=== PATIENT | female | born 1935 | race Hispanic/Latino ===

== ENCOUNTER → 2019-12-18 | Outpatient (CLI) | payer MEDICARE | END | disposition home or self-care (01) | LOC: SHCH 13:11 | PROVIDERS: ATTEND Internal Medicine Cardiovascular Disease | DX: M19.071 Primary osteoarthritis, right ankle and foot (principal); M77.31 Calcaneal spur, right foot; M85.871 Other specified disorders of bone density and structure, right ankle and foot; M19.042 Primary osteoarthritis, left hand; M19.041 Primary osteoarthritis, right hand; I08.3 Combined rheumatic disorders of mitral, aortic and tricuspid valves | CPT/HCPCS: 73130; 73630; 93306; 93356 ==

== ENCOUNTER 2020-03-12 08:48 | Observation (INO) | payer MEDICARE ==
[~2020-03-12] VITALS: Ht 160 cm; Wt 70.8 kg
[2020-03-12] VITALS (12 sets, daily range): BP systolic 84–195; BP diastolic 51–119; PULSE 65–77; RESP 17–20; TEMP 97.2–98
[2020-03-12] MEDS ORDERED: SODIUM CHLORIDE 0.9% 1000ML 1,000 ML IV ONE (10:02)
--- NOTE | 2020-03-12 14:10 | NUR ---
REPORT RECEIVED REPORT FROM ANNA PHILIP RN FOR CONTINUATION OF CARE
--- NOTE | 2020-03-12 14:20 | NUR ---
REPORT REPORTED B/P AND PT IN NO DISTRESS TO MD. NO NEW ORDERS AT THIS TIME THEY WILL ADM SOMETHING FOR B/P AT [employer] HELPER IF NEEDED
[2020-03-12] MEDS ORDERED: BUPIVACAINE/PF 0.25% 30ML VIAL IJ ONE (14:33)
[2020-03-12] MEDS ORDERED: IODIXANOL 320 MG/ML 100 ML VIAL ONE (14:33)
[2020-03-12] MEDS ORDERED: CEFAZOLIN SODIUM 1 GM VIAL ONE (14:33)
[2020-03-12] MEDS ORDERED: MEPERIDINE-PF 25 MG/ML SYG ONE ×3 (14:33→15:46)
[2020-03-12] MEDS ORDERED: LIDOCAINE HCL 1% MDV 50ML VIAL ONE (14:34)
[2020-03-12] MEDS ORDERED: MIDAZOLAM HCL 1 MG/ML 2ML VIAL ONE ×3 (14:34→15:47)
--- NOTE | 2020-03-12 14:55 | NUR ---
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
[2020-03-12] MEDS ORDERED: VANCOMYCIN 1GM+NS 250ML 500 ML IV ONE (15:11)
[2020-03-12] MEDS ORDERED: OCTYL 2-CYANOACRYLATE 1 EACH TP ONE (16:30)
[2020-03-12] MEDS ORDERED: NON-FORMULARY MEDICATION 1 EACH (Alendronate Sodium 70 MG) PO SCH (17:00)
[2020-03-12] MEDS ORDERED: ACETAMINOPHEN-CODEINE 300/30MG TAB PO PRN (17:00)
[2020-03-12] MEDS ORDERED: VITAMIN D 5000 UNIT PO SCH (17:00)
--- NOTE | 2020-03-12 17:20 | NUR ---
notification daughter notified pt procedure was done will be going to room 403.
[2020-03-12] MEDS ORDERED: HYDRALAZINE HCL 20 MG/ML VIAL IV PRN (19:45)
[2020-03-12] MEDS ORDERED: LACTULOSE 20 GM/30 ML UDCUP PO PRN (19:45)
[2020-03-12] MEDS ORDERED: ONDANSETRON HCL 4 MG/2 ML VIAL IV PRN (19:45)
[2020-03-12] MEDS ORDERED: DIPHENHYDRAMINE HCL 25 MG CAPSULE PO PRN (19:45)
[2020-03-12] MEDS ORDERED: ACETAMINOPHEN 325 MG TAB PO PRN ×2 (19:45)
[2020-03-12] MEDS ORDERED: CLONIDINE HCL 0.1 MG TABLET PO PRN (19:45)
[2020-03-12] MEDS ORDERED: MAG HYDROX/AL HYDROX/SIMETH ES 30 ML SUSP UDCUP PO PRN (19:45)
[2020-03-12] MEDS ORDERED: HYDROCODONE/ACETAMINOPHEN 5/325 MG TAB PO PRN (19:45)
[2020-03-12] MEDS ORDERED: PRUNELAX PO SCH (21:00)
[2020-03-12] MEDS ORDERED: GABAPENTIN 100 MG CAPSULE PO SCH (21:00)
[2020-03-12] MEDS ORDERED: NON-FORMULARY MEDICATION 1 EACH (Metoprolol Tartrate 100 MG) PO SCH (21:00)
[2020-03-12] MEDS ORDERED: MAGNESIUM CITR PO SCH (21:00)
[2020-03-12] MEDS ORDERED: MAGNESIUM OXIDE 400 MG TABLET PO SCH (21:00)
[2020-03-12] MEDS ORDERED: SERTRALINE HCL 50 MG TABLET PO SCH (21:00)
[2020-03-12] MEDS ORDERED: ATORVASTATIN CALCIUM 10 MG TABLET PO SCH (21:00)
[2020-03-12] MEDS: METOPROLOL TARTRATE 50 MG TAB PO SCH (22:00)
[2020-03-13 00:51] VITALS: BP 156/80; PULSE 70; RESP 18; TEMP 98.7
[2020-03-13 03:45] VITALS: BP 136/79; PULSE 70; RESP 21; TEMP 97.9
[2020-03-13] MEDS ORDERED: VANCOMYCIN 1GM+NS 250ML 250 ML IV ONE (06:00)
[2020-03-13] MEDS ORDERED: LEVOTHYROXINE 25 MCG TABLET PO SCH (06:30)
[2020-03-13 08:36] VITALS: BP 139/87; PULSE 70; RESP 18; TEMP 98.1
[2020-03-13] MEDS: METOPROLOL TARTRATE 50 MG TAB PO SCH (08:45)
[2020-03-13] MEDS ORDERED: NON-FORMULARY MEDICATION 1 EACH (Multivitamin 1 EACH) PO SCH (09:00)
[2020-03-13] MEDS ORDERED: ASCORBIC ACID 500 MG TAB PO SCH (09:00)
[2020-03-13] MEDS ORDERED: ZINC 50MG PO SCH (09:00)
[2020-03-13] MEDS ORDERED: MULTIVITAMIN TABLET PO SCH (09:00)
[2020-03-13] MEDS ORDERED: ZINC 50 MG PO SCH (09:00)
[2020-03-13] MEDS ORDERED: FUROSEMIDE 20 MG TABLET PO SCH (09:00)
[2020-03-13] MEDS ORDERED: NON-FORMULARY MEDICATION 1 EACH (Calcium Carbonate (Calcium) 600 MG) PO SCH (09:00)
[2020-03-13] MEDS ORDERED: NON-FORMULARY MEDICATION 1 EACH (Ascorbic Acid (Vitamin C) 1,000 MG) PO SCH (09:00)
[2020-03-13] MEDS ORDERED: PRUNELAX PO SCH (09:00)
[2020-03-13] MEDS ORDERED: CALCIUM CARBONATE 500 MG TABLET PO SCH (09:00)
[2020-03-13] MEDS ORDERED: VITAMIN D 5000 UNITS PO SCH (09:00)
[2020-03-13] MEDS ORDERED: HYDROXYCHLOROQUINE SULFATE 200 MG TAB PO SCH (09:00)
[2020-03-13] MEDS ORDERED: Brimonidine Tartrate/Timolol (Combigan Eye Drops) 1 DROP OS SCH ×2 (09:00)
[2020-03-13] MEDS ORDERED: DIGOXIN 125 MCG TABLET PO SCH (09:00)
[2020-03-13 12:13] VITALS: BP 119/68; PULSE 71; RESP 18; TEMP 98.4
--- NOTE | 2020-03-13 13:20 | NUR ---
DISCHARGE VERBAL & WRITTEN DISCHARGE INSTRUCTIONS REVIEWED & GIVEN TO PT & DAUGHTER IN [place]. QUESTIONS ENCOURAGED & CLARIFIED. PROPER CARE & ACTIVITY AFTER BiV UPGRADE REVIEWED. NEW PRESCRIBED MEDICATIONS REVIEWED. PRESCRIPTION GIVEN TO PT'S DAUGHTER. PT TO RESUME TAKING ELIQUIS ON 03/14/2020 REINFORCED. TELE SANKET REMOVED EARLIER. IV DC'D @ THIS TIME. PT & DAUGHTER TO GATHER PERSONAL BELONGINGS. WILL NOTIFY STAFF WHEN READY TO BE TAKEN TO PRIVATE VEHICLE.
--- NOTE | 2020-03-13 13:55 | NUR ---
DISCHARGE PT TAKEN TO PRIVATE VEHICLE VIA WC BY MYSELF, Shekhar EID RN. DAUGHTER AWAITING FOR PT IN PRIVATE VEHICLE. NO DISTRESS NOTED.
--- NOTE | 2020-03-13 14:27 | NUR ---
1150 PATIENT SIGNED IM LETTER TO [id number] AND PLACED IN CHART UNDER CONSENT TAB.
[2020-03-19] MEDS ORDERED: ALENDRONATE 70MG PO SCH (07:00)
== END 2020-03-13 13:35 | disposition home or self-care (01) ==
LOC: DAH 08:48 → 4AH 08:49
PROVIDERS: ADMIT Internal Medicine Cardiovascular Disease; ATTEND Internal Medicine Cardiovascular Disease
DX: I48.91 Unspecified atrial fibrillation (principal); I42.8 Other cardiomyopathies; M06.9 Rheumatoid arthritis, unspecified; I13.0 Hypertensive heart and chronic kidney disease with heart failure and stage 1 through stage 4 chronic kidney disease, or unspecified chronic kidney disease; I50.32 Chronic diastolic (congestive) heart failure; N18.2 Chronic kidney disease, stage 2 (mild); I49.5 Sick sinus syndrome; I27.20 Pulmonary hypertension, unspecified; I25.10 Atherosclerotic heart disease of native coronary artery without angina pectoris; I70.0 Atherosclerosis of aorta; G40.209 Localization-related (focal) (partial) symptomatic epilepsy and epileptic syndromes with complex partial seizures, not intractable, without status epilepticus; F32.9 Major depressive disorder, single episode, unspecified; D68.69 Other thrombophilia; E03.9 Hypothyroidism, unspecified; G83.84 Todd's paralysis (postepileptic); Z79.01 Long term (current) use of anticoagulants; Z95.0 Presence of cardiac pacemaker; Z96.651 Presence of right artificial knee joint
CPT/HCPCS: 33225; 33229; 36415 ×2; 71045 ×2; 80048; 80162; 85025; 85610; 85730; 93005; 96365; 96366; A4215; A4216; A4221; A4222; A4223 ×3; A4606; A4663; C1769 ×2; C1894; C1900; C2621; G0378 ×17; J2175 ×2; J2250 ×2; J3370 ×2; J3490 ×2; J7030; Q9967

== ENCOUNTER → 2020-10-22 | Outpatient (CLI) | payer MEDICARE ==
[~2020-10-22] MED LIST: ALEN70TA80 PO; APIX5TAB PO; ASCO100031 PO; ATOR10TA69 PO; BRIM5DRO OS; CALC600T15 PO; DIGO125T71 PO; FURO20TA4 PO; GABA-529 PO; HYDR200T4 PO; LEVO25TA54 PO; MAGNESIUM CITR PO; METO100T14 PO; MULT-1367 PO; PRUNELAX PO; SERT50TA12 PO; TOFA11TA PO; TYLENOL ARTHRITIS PO; VITAMIN D PO; ZINC50TA71 PO
== END | disposition home or self-care (01) ==
LOC: SHCH 10:59
PROVIDERS: ATTEND Internal Medicine Cardiovascular Disease
DX: I82.890 Acute embolism and thrombosis of other specified veins (principal)
CPT/HCPCS: 93306; 93356; 93970

== ENCOUNTER → 2020-11-20 | Outpatient (CLI) | payer OTHER ==
[~2020-11-20] MED LIST changes: +SERT-439 PO; -SERT50TA12 PO
== END | disposition home or self-care (01) ==
LOC: OIH 14:01
PROVIDERS: ATTEND Internal Medicine Cardiovascular Disease
DX: Z13.6 Encounter for screening for cardiovascular disorders (principal)
CPT/HCPCS: 75571

== ENCOUNTER → 2022-12-14 | Outpatient (CLI) | payer MEDICARE ==
[~2022-12-14] MED LIST changes: +CALC-1125 PO; -CALC600T15 PO
== END | disposition home or self-care (01) ==
LOC: SHCH 10:14
PROVIDERS: ATTEND Internal Medicine Cardiovascular Disease
DX: I87.2 Venous insufficiency (chronic) (peripheral) (principal); I48.0 Paroxysmal atrial fibrillation
CPT/HCPCS: 93925; 93970

== ENCOUNTER → 2023-03-04 | Outpatient (CLI) | payer MEDICARE ==
[~2023-03-04] MED LIST changes: -HYDR200T4 PO; +HYDR200T75 PO
== END | disposition home or self-care (01) ==
LOC: RAH 11:17
PROVIDERS: ATTEND Internal Medicine
DX: M79.604 Pain in right leg (principal); R60.9 Edema, unspecified; L03.115 Cellulitis of right lower limb
CPT/HCPCS: 93971